=== PATIENT | male | born 1995 | race African-American/Black ===

== ENCOUNTER 2017-05-23 16:22 | Emergency (ER) | payer BC, OTHER ==
[~2017-05-23] VITALS: Ht 190.5 cm; Wt 85.0 kg
[2017-05-23 16:23] VITALS: BP 132/85; PULSE 65; RESP 16; TEMP 99.4; O2SAT 100
[2017-05-23] MEDS ORDERED: ERYTOIN10 EACH EYE (19:28)
--- NOTE | 2017-05-23 19:28 | PD ---
HPI Chief Complaint: Eye Problems/Injury Time Seen by Provider: 19:15 Travel History International Travel<30 days: No Contact w/Intl Traveler<30days: No Traveled to known affect area: No History of Present Illness HPI Is a 21-year-old male presenting to the emergency department for evaluation of eye redness. Patient states that it started 3 days ago in the left eye and progress to the right eye today. He reports nasal congestion, rhinitis. Head cold symptoms for the same duration. Patient denies any pain in his eyes, no visual changes. He states that his eyes are tearing, red, crusted in the morning. He denies any headache, fever, chills. Patient does not wear contact lenses. PFSH Past Medical History Medical History: Denies Significant Hx Social History Alcohol Use: No Tobacco Use: No Substance Use: No Allergies-Medications (Allergen,Severity, Reaction): Coded Allergies: No Known Allergies (Verified Allergy, Unknown, 05/23/17) Reported Meds & Prescriptions Reported Meds & Active Scripts Active No Active Prescriptions or Reported Medications Review of Systems Except as stated in HPI: all other systems reviewed are Neg General / Constitutional: No: Fever Eyes: Positive: Redness, Tearing, No: Blurred Vision, Foreign Body Sensation, Pain, Visual changes HENT: No: Headaches, Neck Pain Physical Exam Narrative GENERAL: Well-developed, well-nourished, alert male. Resting comfortably in no acute distress. SKIN: Warm and dry. HEAD: Normocephalic. EYES: No scleral icterus. Moderate injection bilaterally, clear drainage noted. Extraocular movements are intact. Pupils are equal, round, reactive. Fluorescein eye exam was negative for abrasions or lesions. NECK: Supple, trachea midline. No JVD or lymphadenopathy. CARDIOVASCULAR: Regular rate and rhythm without murmurs, gallops, or rubs. RESPIRATORY: Breath sounds equal bilaterally. No accessory muscle use. GASTROINTESTINAL: Abdomen soft, non-tender, nondistended. MUSCULOSKELETAL: No cyanosis, or edema. BACK: Nontender without obvious deformity. No CVA tenderness. Data Data Last Documented VS Vital Signs Date Time Temp Pulse Resp B/P (MAP) Pulse Ox O2 Delivery O2 Flow Rate FiO2 05/23/17 18:59 18 05/23/17 16:23 99.4 65 132/85 (101) 100 Room Air MDM Medical Decision Making Medical Screen Exam Complete: Yes Emergency Medical Condition: Yes Interpretation(s) Vital Signs Date Time Temp Pulse Resp B/P (MAP) Pulse Ox O2 Delivery O2 Flow Rate FiO2 05/23/17 18:59 18 05/23/17 16:23 99.4 65 16 132/85 (101) 100 Room Air Differential Diagnosis Viral conjunctivitis versus bacterial conjunctivitis versus iritis versus episcleritis versus other Narrative Course Patient presented for evaluation of bilateral eye redness. Onset was 3 days ago it is accompanied by cold symptoms which have been resolving. Exam appears consistent with a viral conjunctivitis. Patient will be given erythromycin ointment, for lubrication and to prevent secondary bacterial infection. He was encouraged to maintain strict handwashing, avoid touching his eyes and other surfaces. Patient was encouraged to return to emergency department for any new or worsening symptoms, he can follow up with pigs feet finisher if needed. He verbalized understanding instructions. Patient is stable for discharge. Diagnosis Primary Impression: Viral conjunctivitis of both eyes Referrals: [facility] Care Physician Patient Instructions: Conjunctivitis (ED), General Instructions Departure Forms: Tests/Procedures, Work Release Enter return to work date: May 24, 2017 Additional Instructions: Maintain strict hand washing Use medication as directed Follow-up with your primary doctor or an pigs feet finisher as needed Return to emergency department for any new or worsening symptoms Med/Other Pt SpecificInfo: Prescription(s) given Scripts Erythromycin Opth Oint (Erythromycin Opth Oint) 5 Mg/Gm Oint 1 APPLIC EACH EYE QID for Infection for 5 Days, #1 TUBE 0 Refills Prov: Elsa Mckeon 05/23/17 Disposition: 01 DISCHARGE HOME Condition: Stable Elsa Mckeon May 23, 2017 19:28
== END 2017-05-23 19:50 | disposition home or self-care (01) ==
LOC: NEPK 16:22
DX: B30.9 Viral conjunctivitis, unspecified (principal)
CPT/HCPCS: 99283